=== PATIENT | male | born 1960 | race African-American/Black ===

== ENCOUNTER 2020-05-29 15:09 | Outpatient (REF) | payer OTHER, SELFPAY ==
[2020-05-29 16:47] LABS: Prostate Specific Antigen < 0.05 ng/mL (<0.05-4.0)
== END 2020-05-29 15:10 | disposition home or self-care (01) ==
LOC: HO.LAB 15:09
PROVIDERS: Visit Provider Radiology Radiation Oncology
DX: C61 Malignant neoplasm of prostate (principal)
CPT/HCPCS: 84153

== ENCOUNTER 2020-12-10 15:17 | Outpatient (REF) | payer OTHER, SELFPAY ==
[2020-12-10 16:31] LABS: Prostate Specific Antigen 0.05 ng/mL (<0.05-4.0)
== END 2020-12-10 15:18 | disposition home or self-care (01) ==
LOC: HO.LAB 15:17
PROVIDERS: PCP Internal Medicine; Visit Provider Radiology Radiation Oncology
DX: C61 Malignant neoplasm of prostate (principal); Z12.5 Encounter for screening for malignant neoplasm of prostate
CPT/HCPCS: 36415; 84153

== ENCOUNTER 2021-08-26 15:21 | Outpatient (REF) | payer OTHER, SELFPAY ==
[2021-08-26 17:27] LABS: Prostate Specific Antigen 0.08 ng/mL (<0.05-4.0)
== END 2021-08-26 15:22 | disposition home or self-care (01) ==
LOC: HO.LAB 15:21
PROVIDERS: PCP Internal Medicine; Visit Provider Radiology Radiation Oncology
DX: C61 Malignant neoplasm of prostate (principal)
CPT/HCPCS: 36415; 84153

== ENCOUNTER → 2021-11-20 13:50 | Outpatient (BNVA) | payer OTHER, SELFPAY | PROVIDERS: PCP Internal Medicine; Visit Provider Urology | DX: Z13.89 Encounter for screening for other disorder (principal) ==

== ENCOUNTER 2022-11-10 15:22 | Outpatient (REF) | payer OTHER, SELFPAY ==
[2022-11-10 17:52] LABS: Prostate Specific Antigen 0.11 ng/mL (<0.05-4.0)
== END 2022-11-10 15:23 | disposition home or self-care (01) ==
LOC: HO.LAB 15:22
PROVIDERS: PCP Internal Medicine; Visit Provider Urology
DX: Z12.5 Encounter for screening for malignant neoplasm of prostate (principal); N40.1 Benign prostatic hyperplasia with lower urinary tract symptoms; N13.8 Other obstructive and reflux uropathy
CPT/HCPCS: 36415; 84153

== ENCOUNTER → 2022-11-19 15:26 | Outpatient (BNVA) | payer OTHER, SELFPAY | PROVIDERS: PCP Internal Medicine; Visit Provider Urology | DX: Z13.89 Encounter for screening for other disorder (principal) ==

== ENCOUNTER 2023-01-30 07:58 | Outpatient (REF) | payer OTHER, SELFPAY ==
--- NOTE | ~2023-01-30 | XR_ITS ---
EXAMINATION: XR KNEE, RIGHT CLINICAL INFORMATION: Reason for Exam RIGHT KNEE/RIGHT HIP PAIN COMPARISON: None TECHNIQUE: 4 views of the knee FINDINGS: No acute fracture or dislocation. Post reflect a fracture deformities of the proximal tibial diaphysis and proximal fibular diaphysis with partially imaged intramedullary nail in the tibia. No perihardware lucency. Advanced degenerative changes of the knee with complete loss of medial compartment joint space and tricompartmental osteophytes.. No joint effusion. Soft tissues are unremarkable. XR/XR knee RT 4V IMPRESSION: * No acute osseous abnormality. * Moderate degenerative changes of the knee. Chronic fracture deformities of the proximal tibia and fibula status post ORIF.
--- NOTE | ~2023-01-30 | XR_ITS ---
EXAMINATION: XR HIP, RIGHT CLINICAL INFORMATION: Pain COMPARISON: None available. TECHNIQUE: Two views of the right hip. One view of the pelvis. FINDINGS: No acute fracture or dislocation. Mild degenerative changes of the hips with subchondral sclerosis and cystic change. Calcified phlebolith in the pelvis. Partially imaged penile prosthesis hardware. XR/XR hip RT w PEL1V IMPRESSION: Mild degenerative changes of the hips.
[2023-01-30 08:52] LABS: MANUAL DIFF FLAG NO
[2023-01-30 09:25] LABS: Basophils Percent Auto 1.1 % (0-2); Eosinophils Absolute Auto 0.2 X10*3/uL (0.0-0.4); Eosinophils Percent Auto 5.3 % (0-4); Hematocrit 42.4 % (42.0-52.0); Hemoglobin 13.7 g/dl (14.0-18.0); Lymphocytes Absolute Auto 1.1 X10*3/uL (1.2-4.9); Lymphocytes Percent Auto 37.1 % (20-40); Mean Corpuscular HGB Conc 32.3 g/dl (31.0-36.0); Mean Corpuscular Hemoglobin 27.3 pg (27.0-33.0); Mean Corpuscular Volume 84.6 fL (80.0-98.0); Mean Platelet Volume 9.5 fL (9.4-12.4); Monocytes Absolute Auto 0.4 X10*3/uL (0.1-1.2); Monocytes Percent Auto 12.7 % (2-11); Neutrophils Absolute Auto 1.2 x10*3/uL (2.0-8.3); Neutrophils Percent Auto 43.8 % (45-73); Platelet Count 206 X10*3/uL (160-400); Red Blood Count 5.01 X10*6/uL (4.60-5.80); White Blood Count 2.8 X10*3/uL (4.8-10.8)
[2023-01-30 09:26] LABS: Appearance Urine Clear; Color Urine Yellow; Glucose Urine UA Negative (Negative); Leukocyte Esterase Urine Negative (Negative); Nitrite Urine Negative (Negative); PH 6.5 (5.0-9.0); Urine Blood Negative (Negative); Urine Ketones Negative (Negative); Urine Protein Negative (Neg-Trace)
[2023-01-30 10:24] LABS: Alanine Aminotransferase 24 U/L (0-40); Alkaline Phosphatase 59 U/L (39-117); Anion Gap 12 (12-20); Aspartate Amino Transferase 23 U/L (5-37); Bilirubin Total 0.8 mg/dL (0.0-1.0); Blood Urea Nitrogen 19 mg/dL (9-16); Calcium 9.8 mg/dL (8.4-10.2); Carbon Dioxide 28 mmol/L (22-29); Chloride 101 mmol/L (96-108); Cholesterol 210 mg/dL; Estimated Glomerular Filt Rate 50; Glucose Fasting 97 mg/dL (60-99); HDL Cholesterol 55 mg/dL; Iron 81 mcg/dL (45-160); LDL Cholesterol Calculated 140 mg/dl; Percent Iron Saturation 32 % (15-50); Potassium 3.7 mmol/L (3.3-5.1); Sodium 137 mmol/L (135-145); Total Iron Binding Capacity 255 mcg/dL (228-428); Triglycerides 75 mg/dL; Unsaturated Iron Binding 174 ug/dL
== END 2023-01-30 07:59 | disposition home or self-care (01) ==
LOC: HO.LAB 07:58
PROVIDERS: PCP Internal Medicine; Visit Provider Internal Medicine
DX: M25.561 Pain in right knee (principal); M25.551 Pain in right hip; E78.00 Pure hypercholesterolemia, unspecified; D64.9 Anemia, unspecified; I12.9 Hypertensive chronic kidney disease with stage 1 through stage 4 chronic kidney disease, or unspecified chronic kidney disease; N18.9 Chronic kidney disease, unspecified
CPT/HCPCS: 36415; 73502; 73564; 80053; 80061; 81003; 83540; 85025

== ENCOUNTER 2023-05-04 14:30 | Outpatient (REF) | payer OTHER, SELFPAY ==
[2023-05-04 16:35] LABS: Prostate Specific Antigen 0.13 ng/mL (<0.05-4.0)
== END 2023-05-04 14:31 | disposition home or self-care (01) ==
LOC: HO.LAB 14:30
PROVIDERS: PCP Internal Medicine; Visit Provider Urology
DX: C61 Malignant neoplasm of prostate (principal); Z12.5 Encounter for screening for malignant neoplasm of prostate
CPT/HCPCS: 36415; 84153

== ENCOUNTER 2023-05-21 08:52 | Outpatient (AMB) | payer OTHER, SELFPAY ==
--- NOTE | 2023-05-21 09:03 | A.OFFVIS_ITS ---
Intake Intake Visit Reasons: 6m/PSA(set) Intake Note: Patient is present for PSA Urology Med: NONE Blood Thinner: none Research Environmental Engineer Required: No Accompanied by: Self / Same As Patient Allergies No Known Allergies [No Known Allergies*] Allergy (Verified 05/21/23 09:04) HPI HPI Comments History of Present Illness Details Kurtis is a pleasant male. He is a patient of Dr. Mario. He is seen for the following urologic conditions - prostate cancer Slight rise in PSA If continues 0.2 would consider PET-CT Part of [employer] exposure Prostate Cancer - 2014 [place] 3+4 pT2 initial therapy RALP, EXBRT for rising PSA 03/10 PSA bouncing PSA 09/11 0.05, 09/14 0.08, 10/16 0.11, 05/16 0.13 Good urinary control, Associated erectile dysfunction Initial therapy RALP [facility] 2014 Secondary therapy EXBRT [facility] 03/10 - PSA 0.17 Continue with 6m PSA - consider PET-CT if PSA crosses 0.2 Review of Systems Const Denies chills and Denies fever(s) Card Reports no additional complaints and Denies syncope Resp Denies cough GI Denies abdominal pain and Denies heartburn Reports as per HPI and Denies change in libido Neuro Denies syncope Psych Denies change in libido Endo Denies change in libido Physical Exam Const General: cooperative, healthy appearing, comfortable and no acute distress Orientation/consciousness: patient oriented x3 HEENT Face and sinus: Yes normal facial exam Mouth: moist mucous membranes Neck Neck: Yes normal visual inspection, Yes full ROM and Yes trachea midline Chest Chest palpation & inspection: normal inspection of the chest Resp Effort & Inspection: normal respiratory effort, able to speak in complete sentences and no respiratory distress GI Inspection: Yes normal to inspection Back/Spine/Pelvis Cervical Spine: normal cervical lordosis Thoracic/Lumbar Spine: thoracic and lumbar spine normal to inspection Skin General skin exam: no rashes or lesions noted Neuro General: patient oriented x3, gait normal, tone normal and moves all extremities Extrem General: Yes normal to inspection and Yes capillary refill normal Assessment & Plan Assessment & Plan (1) Prostate cancer: Code(s): C61 - Malignant neoplasm of prostate Plan Six month follow-up PSA Orders: Orders Prostate Specific Antigen 6 Months C61 - Malignant neoplasm of prostate Patient Instructions: Imaging studies, laboratory and physical exam results were discussed and reviewed in detail. No major barriers to patient understanding were identified. An opportunity to ask questions regarding the treatment plan was provided. All questions were answered. The patient expressed understanding and agreement with the above treatment plan. The patient is aware they should contact our office by phone for worsening of their current condition or the appearance of new urologic symptoms. Compliance is encouraged with any medications and followup testing that is ordered. It is a privilege to participate in the urologic care of your patient. If you have any questions or concerns regarding treatment for the above conditions, or other urologic issues, please do not hesitate to contact me. The office telephone contact is [phone]. This note is constructed using voice recognition software. While every effort has been made to ensure accuracy camouflage assembler errors may have been included. Yours sincerely, Dr Nathan Greenwood MD, [facility] - Urology Providers of Expert, Compassionate Care for the Genitourinary System Coding Level of Care Code Est Pt Level 3 (47310) Diagnoses Prostate cancer C61
== END 2023-05-21 09:34 | disposition home or self-care (01) ==
PROVIDERS: PCP Internal Medicine; Visit Provider Urology
DX: C61 Malignant neoplasm of prostate (principal)
CPT/HCPCS: 99213

== ENCOUNTER → 2023-05-21 08:52 | Outpatient (BNVA) | payer OTHER, SELFPAY | PROVIDERS: Visit Provider Urology ==

== ENCOUNTER 2023-07-09 09:44 | Outpatient (AMB) | payer OTHER, SELFPAY ==
--- NOTE | 2023-07-09 10:26 | A.OFFVIS_ITS ---
Intake Vital Signs 07/09/23 10:31 Height 5 ft 7 in Weight 220 lb BMI 34.5 Intake Visit Reasons: FORESTRY AIDE- RT Knee pain Intake Note: Kurtis 63 yr old male presents today for a new patient visit for his right knee. States he has knee pain that has worsen in the last 2-3 year. 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 He also reports intermittent discomfort along the lateral aspect of his right hip. He denies any fevers or chills. He has tried Tylenol and anti-inflammatory medicines which gave him minimal relief. 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 Physical Exam Vital Signs: BMI result Body Mass Index 34.5 Const Other: Well-nourished well-developed very friendly male awake alert and oriented x3 in no acute distress Extrem Other: Bilateral lower extremity examination shows good capillary refill, no skin lesions noted, normal sensation light touch Right hip examination shows full range of motion when compared to his left hip, tenderness along his iliotibial band, no overlying skin lesions Right knee examination shows palpable crepitus with range of motion, pain with range of motion, range of motion from -3 degrees to 115 degrees, no instability Results Reviewed Results Reviewed: X-rays of the patient's right knee show moderate to severe joint space narrowing, subchondral sclerosis, there is an intramedullary asher within the tibia with no signs of loosening Assessment & Plan Assessment & Plan (1) Iliotibial band syndrome of right side: Code(s): M76.31 - Iliotibial band syndrome, right leg (2) Arthritis of right knee: Code(s): M17.11 - Unilateral primary osteoarthritis, right knee Plan: Mr. Bragg presents with right hip pain due to iliotibial band syndrome as well as right knee pain and mechanical symptoms due to degenerative joint disease. I had a lengthy discussion with the patient regarding the treatment options. He wishes hold off on surgery for as long possible. I agree with this plan. Because of the patient's symptoms of instability have him fitted with a knee brace. I feel that this is a medical necessity to help prevent future falls. I also put in a referral to physical therapy. I will see him back in 2- 3 months time for repeat clinical examination. Feel free to call me at any time should questions regarding his orthopedic management arise. Thank you very much for asking me to see this very friendly gentleman. I spent 22 minutes in reviewing the patient's records and imaging studies, seeing the patient and documenting in the medical record. Orders: Orders PT Evaluation and Treatment Today M17.11 - Unilateral primary osteoarthritis, right knee, M76.31 - Iliotibial band syndrome, right leg Coding Level of Care Code New Pt Level 2 (36506) Diagnoses Iliotibial band syndrome of right side M76.31 Arthritis of right knee M17.11
[2023-07-09 10:31] VITALS: BMI 34.5
== END 2023-07-09 10:51 | disposition home or self-care (01) ==
PROVIDERS: PCP Internal Medicine; Visit Provider Orthopaedic Surgery
DX: M76.31 Iliotibial band syndrome, right leg (principal); M17.11 Unilateral primary osteoarthritis, right knee
CPT/HCPCS: 99202

== ENCOUNTER → 2023-07-09 09:44 | Outpatient (BNVA) | payer OTHER, SELFPAY | PROVIDERS: PCP Internal Medicine; Visit Provider Orthopaedic Surgery ==

== ENCOUNTER 2023-09-17 09:55 | Outpatient (RCR) | payer OTHER, SELFPAY ==
--- NOTE | 2023-10-06 11:20 | MHC.PT.DC ---
[facility] [place] Office [place] Office [place] Office [address] Mike Sanchez [address] [phone] F: [phone] F: [phone] F: [phone] F: [phone] Physical Therapy Discharge Report Diagnosis: RIGHT KNEE PAIN (KP) Date of Surgery: Date of Evaluation: 09/17/23 Date of Discharge: 10/21/23 Treatments to Date: 1 Cancellations to Date: 0 No Shows to Date: 0 Discharge Status: Patient Elected to Stop Discharge Summary: Pt attended PT Eval only then phoned to self DC, no reason given. Electronically signed by: Alpa Pereira PT DPT Please sign and return to therapist. Thank you for your referral.
== END 2023-10-06 11:20 | disposition home or self-care (01) ==
LOC: HO.PT 09:55
PROVIDERS: PCP Internal Medicine; Visit Provider Orthopaedic Surgery
DX: M17.11 Unilateral primary osteoarthritis, right knee (principal); M76.31 Iliotibial band syndrome, right leg
CPT/HCPCS: 97110; 97161

== ENCOUNTER 2023-10-29 12:34 | Outpatient (AMB) | payer OTHER, SELFPAY ==
[2023-10-29 12:42] VITALS: BMI 34.5
--- NOTE | 2023-10-29 12:42 | MHC.OFFVIS ---
Intake Vital Signs 10/29/23 12:42 Height 5 ft 7 in Weight 220 lb BMI 34.5 Intake Visit Reasons: OV-Rt knee pain Intake Note: Kurtis is a 63 year old male who presents for a follow up of Right knee pain. Patient reports he went to physical therapy and it did help and stairs are easier. He was fitted for a brace at his last appointment and is not wearing it. The patient describes his knee pain as achy in nature. He wishes to hold off on an injection for now. States that he plans to begin light jogging in a field near his home as whether this spring improves. 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 Bragg presents for follow-up of his right knee pain due to degenerative joint disease. I had a lengthy discussion with the patient regarding the treatment options. At this point is getting good relief from his current stretching and exercise program. We will hold off on an injection. He will follow up with me on an as-needed basis should his symptoms worsen in any way. Feel free to call me at any time should questions regarding his orthopedic management arise. I spent 22 minutes in reviewing the patient's records and imaging studies, seeing the patient and documenting in the medical record. Coding Level of Care Code Est Pt Level 2 (26221) Diagnoses Arthritis of right knee M17.11
== END 2023-10-29 12:58 | disposition home or self-care (01) ==
PROVIDERS: PCP Internal Medicine; Visit Provider Orthopaedic Surgery
DX: M17.11 Unilateral primary osteoarthritis, right knee (principal)
CPT/HCPCS: 99212

== ENCOUNTER → 2023-10-29 12:34 | Outpatient (BNVA) | payer OTHER, SELFPAY | PROVIDERS: PCP Internal Medicine; Visit Provider Orthopaedic Surgery ==

== ENCOUNTER 2023-12-04 08:32 | Outpatient (REF) | payer OTHER, SELFPAY ==
[2023-12-04 10:06] LABS: Prostate Specific Antigen 0.15 ng/mL (<0.05-4.0)
== END 2023-12-04 08:33 | disposition home or self-care (01) ==
LOC: HO.LAB 08:32
PROVIDERS: PCP Internal Medicine; Visit Provider Urology
DX: Z12.5 Encounter for screening for malignant neoplasm of prostate (principal); C61 Malignant neoplasm of prostate
CPT/HCPCS: 36415; 84153

== ENCOUNTER 2023-12-22 15:06 | Outpatient (AMB) | payer OTHER, SELFPAY ==
--- NOTE | 2023-12-22 15:08 | MHC.OFFVIS ---
Intake Visit Reasons: PSA- follow up(set) Intake Note: Patient is Present for Telephone Follow Up Urology Med:None Antibiotic Allergy: None Blood Thinner: None Allergies No Known Allergies [No Known Allergies*] Allergy (Verified 12/22/23 15:08) HPI Comments Details: Kurtis is a pleasant male. He is a patient of Dr. Mario. He is seen for the following urologic conditions - prostate cancer Telemedicine Evaluation 15 min Consultation Doximity Freddie Video attempted Very slow PSA rise. Doubling time approximately 30 months May try low-dose finasteride Thursday, Thursday, Thursday if PSMA Scan negative Continue to follow Part of [place] exposure Prostate Cancer - 2014 [place] 3+4 pT2 initial therapy RALP, EXBRT for rising PSA 03/10 PSA bouncing PSA 09/11 0.05, 09/14 0.08, 10/16 0.11, 05/16 0.13, 12/15 0.15 Good urinary control, Associated erectile dysfunction Initial therapy RALP [facility] 2014 Secondary therapy EXBRT [facility] 03/10 - PSA 0.17 Continue with 6m PSA - consider PET-CT if PSA crosses 0.2 PFSH Social History Current occupational status: employed 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 Review of Systems Const All systems reviewed & are unremarkable except as noted in HPI and below Reports no additional complaints Resp Reports no additional complaints GI Reports no additional complaints Reports as per HPI Musc Reports no additional complaints Physical Exam Telemedicine evaluation Appropriate responses Regular breathing rate and rhythm HEENT Head: Yes normal to inspection Ears: hearing grossly normal bilaterally Eyes General: appearance normal, both eyes and all related structures Neck Neck: Yes normal visual inspection Chest Chest palpation & inspection: normal inspection of the chest Resp Effort & Inspection: normal respiratory effort and able to speak in complete sentences Telehealth Telehealth Telehealth Platform: Social IQ (Social Influence Quotient) Location of provider rendering services: practice address Location of patient: address on file Patient Identification confirmed using: Name, : Yes Telehealth method: video Patient verbally consented to treatment: Yes Patient verbally consented to billing insurance company: Yes Patient informed of any privacy concerns related to visit: Yes Minutes spent on Phone/Video with Pt.: 15 Assessment & Plan Assessment & Plan (1) Prostate cancer: Code(s): C61 - Malignant neoplasm of prostate Category: Medical (2) Rising PSA following treatment for malignant neoplasm of prostate: Code(s): R97.21 - Rising PSA following treatment for malignant neoplasm of prostate Category: Medical Plan Six-month follow-up PSA Orders: Orders Prostate Specific Antigen 6 Months C61 - Malignant neoplasm of prostate Patient Instructions: Imaging studies, laboratory and physical exam results were discussed and reviewed in detail. No major barriers to patient understanding were identified. An opportunity to ask questions regarding the treatment plan was provided. All questions were answered. The patient expressed understanding and agreement with the above treatment plan. The patient is aware they should contact our office by phone for worsening of their current condition or the appearance of new urologic symptoms. Compliance is encouraged with any medications and followup testing that is ordered. It is a privilege to participate in the urologic care of your patient. If you have any questions or concerns regarding treatment for the above conditions, or other urologic issues, please do not hesitate to contact me. The office telephone contact is [phone]. This note is constructed using voice recognition software. While every effort has been made to ensure accuracy battery assembler plastic errors may have been included. Yours sincerely, Dr Nathan Greenwood MD, [facility] - Urology Providers of Expert, Compassionate Care for the Genitourinary System Coding Level of Care Code Tele Est Pt Level 3 (80991) Complex EM visit Add On G2211 Diagnoses Prostate cancer C61 Rising PSA following treatment for malignant neoplasm of prostate R97.21
== END 2023-12-22 15:25 | disposition home or self-care (01) ==
LOC: HO.HUSH 15:06
PROVIDERS: PCP Internal Medicine; Visit Provider Urology
DX: C61 Malignant neoplasm of prostate (principal); R97.21 Rising PSA following treatment for malignant neoplasm of prostate
CPT/HCPCS: 99213; G2211

== ENCOUNTER → 2023-12-22 15:06 | Outpatient (BNVA) | payer OTHER, SELFPAY | PROVIDERS: PCP Internal Medicine; Visit Provider Urology ==

== ENCOUNTER 2024-01-29 10:27 | Outpatient (REF) | payer MEDICARE, SELFPAY ==
[2024-01-29 13:26] LABS: Appearance Urine Clear; Color Urine Yellow; Glucose Urine UA Negative (Negative); Leukocyte Esterase Urine Negative (Negative); Nitrite Urine Negative (Negative); PH 5.5 (5.0-9.0); Urine Blood Negative (Negative); Urine Ketones Negative (Negative); Urine Protein Negative (Neg-Trace)
[2024-01-29 13:31] LABS: Basophils Percent Auto 1.7 % (0-2); Eosinophils Absolute Auto 0.1 X10*3/uL (0.0-0.4); Eosinophils Percent Auto 5.1 % (0-4); Hematocrit 41.2 % (42.0-52.0); Hemoglobin 13.5 g/dl (14.0-18.0); Lymphocytes Absolute Auto 0.8 X10*3/uL (1.2-4.9); Lymphocytes Percent Auto 34.7 % (20-40); MANUAL DIFF FLAG SCAN; Mean Corpuscular HGB Conc 32.8 g/dl (31.0-36.0); Mean Corpuscular Hemoglobin 27.7 pg (27.0-33.0); Mean Corpuscular Volume 84.4 fL (80.0-98.0); Mean Platelet Volume 9.2 fL (9.4-12.4); Monocytes Absolute Auto 0.3 X10*3/uL (0.1-1.2); Monocytes Percent Auto 12.7 % (2-11); Neutrophils Absolute Auto 1.1 x10*3/uL (2.0-8.3); Neutrophils Percent Auto 45.8 % (45-73); Platelet Count 219 X10*3/uL (160-400); Red Blood Count 4.88 X10*6/uL (4.60-5.80); SCAN SMEAR FLAG 1
[2024-01-29 13:32] LABS: White Blood Count 2.4 X10*3/uL (4.8-10.8)
[2024-01-29 13:48] LABS: Alanine Aminotransferase 19 U/L (0-40); Alkaline Phosphatase 59 U/L (39-117); Anion Gap 13 (12-20); Aspartate Amino Transferase 19 U/L (5-37); Bilirubin Total 0.5 mg/dL (0.0-1.0); Blood Urea Nitrogen 16 mg/dL (9-16); Calcium 9.2 mg/dL (8.4-10.2); Carbon Dioxide 26 mmol/L (22-29); Chloride 102 mmol/L (96-108); Cholesterol 203 mg/dL (<200); Estimated Glomerular Filt Rate > 60; Glucose Fasting 100 mg/dL (60-99); HDL Cholesterol 55 mg/dL (>40); LDL Cholesterol Calculated 136 mg/dL (<100); Potassium 3.5 mmol/L (3.3-5.1); Sodium 137 mmol/L (135-145); Total Protein 7.3 g/dL (6.5-8.0); Triglycerides 61 mg/dL (<150)
[2024-01-29 13:59] LABS: SLIDE REVIEW VERIFIED
== END 2024-01-29 10:28 | disposition home or self-care (01) ==
LOC: HO.10HDL 10:27
PROVIDERS: Visit Provider Internal Medicine
DX: I12.9 Hypertensive chronic kidney disease with stage 1 through stage 4 chronic kidney disease, or unspecified chronic kidney disease (principal); N18.9 Chronic kidney disease, unspecified; E78.00 Pure hypercholesterolemia, unspecified
CPT/HCPCS: 36415; 80053; 80061; 81003; 85025

== ENCOUNTER 2024-06-16 08:28 | Outpatient (REF) | payer MEDICARE, SELFPAY | END 2024-06-16 08:29 | disposition home or self-care (01) | LOC: HO.10HDL 08:28 | PROVIDERS: Visit Provider Urology | DX: C61 Malignant neoplasm of prostate (principal); Z12.5 Encounter for screening for malignant neoplasm of prostate | CPT/HCPCS: 36415; 84153 ==

== ENCOUNTER 2024-06-24 10:36 | Outpatient (AMB) | payer MEDICARE, BC, SELFPAY ==
--- NOTE | 2024-06-24 10:46 | A.OFFVIS_ITS ---
Intake Visit Reasons: 6m/PSA(set) Intake Note: Patient is Present for Follow Up PSA Urology Medication: None Antibiotic Allergies: None Blood Thinners: None Recent PSA: 06/16/24 PSA: 0.20 Jig Operator Required: No Accompanied by: Self / Same As Patient Allergies No Known Allergies [No Known Allergies*] Allergy (Verified 06/24/24 10:50) HPI Comments Details: Kurtis is a pleasant male. He is a patient of Dr. Mario. He is seen for the following urologic conditions - prostate cancer Six-month follow-up Very slow PSA rise. Doubling time approximately 30 months May try cycling low-dose finasteride - alternate months Part of [employer] exposure Prostate Cancer - 2014 [place] 3+4 pT2 initial therapy RALP, EXBRT for rising PSA 03/10 PSA bouncing - with slow rise PSA 09/11 0.05, 09/14 0.08, 10/16 0.11, 05/16 0.13, 12/15 0.15, 06/16 0.2 Good urinary control, Associated erectile dysfunction Initial therapy RALP [facility] 2014 Secondary therapy EXBRT [facility] 03/10 - PSA 0.17 Continue with 6m PSA - consider PET-CT if PSA crosses 0.2 PFSH Social History Current occupational status: employed 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 Review of Systems Const Denies chills and Denies fever(s) Card Reports no additional complaints and Denies syncope Resp Denies cough GI Denies abdominal pain and Denies heartburn Reports as per HPI and Denies change in libido Neuro Denies syncope Psych Denies change in libido Endo Denies change in libido Physical Exam Const General: cooperative, healthy appearing, comfortable and no acute distress Orientation/consciousness: patient oriented x3 HEENT Face and sinus: Yes normal facial exam Mouth: moist mucous membranes Neck Neck: Yes normal visual inspection, Yes full ROM and Yes trachea midline Chest Chest palpation & inspection: normal inspection of the chest Resp Effort & Inspection: normal respiratory effort, able to speak in complete sentences and no respiratory distress GI Inspection: Yes normal to inspection Back/Spine/Pelvis Cervical Spine: normal cervical lordosis Thoracic/Lumbar Spine: thoracic and lumbar spine normal to inspection Skin General skin exam: no rashes or lesions noted Neuro General: patient oriented x3, gait normal, tone normal and moves all extremities Extrem General: Yes normal to inspection and Yes capillary refill normal Assessment & Plan Assessment & Plan (1) Rising PSA following treatment for malignant neoplasm of prostate: Code(s): R97.21 - Rising PSA following treatment for malignant neoplasm of prostate Category: Medical (2) Prostate cancer: Code(s): C61 - Malignant neoplasm of prostate Category: Medical Plan Initiate alternate month finasteride Six-month follow-up PSA Orders: Orders Prostate Specific Antigen 6 Months R97.21 - Rising PSA following treatment for malignant neoplasm of prostate Medications: New finasteride Take medication daily for alternate months - June on, July off etc 5 mg PO DAILY 90 days 90 tabs 1RF R97.21 - Rising PSA following treatment for malignant neoplasm of prostate Patient Instructions: Imaging studies, laboratory and physical exam results were discussed and reviewed in detail. No major barriers to patient understanding were identified. An opportunity to ask questions regarding the treatment plan was provided. All questions were answered. The patient expressed understanding and agreement with the above treatment plan. The patient is aware they should contact our office by phone for worsening of their current condition or the appearance of new urologic symptoms. Compliance is encouraged with any medications and followup testing that is ordered. It is a privilege to participate in the urologic care of your patient. If you have any questions or concerns regarding treatment for the above conditions, or other urologic issues, please do not hesitate to contact me. The office telephone contact is [phone]. This note is constructed using voice recognition software. While every effort has been made to ensure accuracy gang bore operator errors may have been included. Yours sincerely, Dr Nathan Greenwood MD, [facility] - Urology Providers of Expert, Compassionate Care for the Genitourinary System Coding Level of Care Code Est Pt Level 4 (97296) Diagnoses Rising PSA following treatment for malignant neoplasm of prostate R97.21 Prostate cancer C61
== END 2024-06-24 11:12 | disposition home or self-care (01) ==
LOC: HO.HUSH 10:37
PROVIDERS: PCP Internal Medicine; Visit Provider Urology
DX: R97.21 Rising PSA following treatment for malignant neoplasm of prostate (principal); C61 Malignant neoplasm of prostate
CPT/HCPCS: 99214

== ENCOUNTER → 2024-06-24 10:36 | Outpatient (BNVA) | payer MEDICARE, SELFPAY | PROVIDERS: PCP Internal Medicine; Visit Provider Urology | DX: R97.21 Rising PSA following treatment for malignant neoplasm of prostate (principal); C61 Malignant neoplasm of prostate | CPT/HCPCS: 99212 ==

== ENCOUNTER 2024-12-26 09:17 | Outpatient (REF) | payer BC, MEDICARE, SELFPAY ==
[2024-12-26 11:21] LABS: Prostate Specific Antigen 0.24 ng/mL (<0.05-4.0)
== END 2024-12-26 09:18 | disposition home or self-care (01) ==
LOC: HO.10HDL 09:17
PROVIDERS: Visit Provider Urology
DX: Z12.5 Encounter for screening for malignant neoplasm of prostate (principal); R97.21 Rising PSA following treatment for malignant neoplasm of prostate
CPT/HCPCS: 36415; 84153

== ENCOUNTER 2024-12-30 13:15 | Outpatient (AMB) | payer BC, SELFPAY ==
--- NOTE | 2024-12-30 13:15 | A.OFFVIS_ITS ---
Intake Visit Reasons: 6m/ PSA Intake Note: Patient is present for 6M/PSA Urology Medication:FINASTERIDE Antibiotic Allergy:NONE Blood Thinner:NONE Electrostatic Paint Operator Required: No Allergies No Known Allergies [No Known Allergies*] Allergy (Verified 12/30/24 13:16) HPI Comments Details: Kurtis is a pleasant male. He is a patient of Dr. Mario. He is seen for the following urologic conditions - prostate cancer Telemedicine Evaluation 15 min Consultation Doximity Freddie Video Six-month follow-up Very slow PSA rise. Doubling time approximately 30 months May try cycling low-dose finasteride - alternate months Part of [employer] [place] exposure Prostate Cancer - 2014 [place] 3+4 pT2 initial therapy RALP, EXBRT for rising PSA 03/10 PSA bouncing - with slow rise PSA 09/11 0.05, 09/14 0.08, 10/16 0.11, 05/16 0.13, 12/15 0.15, 06/16 0.2, 01/15 0.2 Good urinary control, Associated erectile dysfunction Initial therapy RALP [facility] 2014 Secondary therapy EXBRT [facility] 03/10 - PSA 0.17 Continue with 6m PSA - consider PET-CT if PSA crosses 0.2 PFSH Social History Current occupational status: employed 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 Telehealth Telehealth Telehealth Platform: Magnetic Location of provider rendering services: practice address Location of patient: address on file Patient Identification confirmed using: Name, : Yes Telehealth method: video Patient verbally consented to treatment: Yes Patient verbally consented to billing insurance company: Yes Patient informed of any privacy concerns related to visit: Yes Minutes spent on Phone/Video with Pt.: 15 Assessment & Plan Assessment & Plan (1) Prostate cancer: Code(s): C61 - Malignant neoplasm of prostate Category: Medical Plan PSA six-month Orders: Orders Prostate Specific Antigen 6 Months C61 - Malignant neoplasm of prostate Patient Instructions: This note is constructed using voice recognition software. While every effort has been made to ensure accuracy product technology scientist errors may have been included. Imaging studies, laboratory and physical exam results were discussed and reviewed in detail. No major barriers to patient understanding were identified. An opportunity to ask questions regarding the treatment plan was provided. All questions were answered. The patient expressed understanding and agreement with the above treatment plan. The patient is aware they should contact our office by phone for worsening of their current condition or the appearance of new urologic symptoms. Compliance is encouraged with any medications and followup testing that is ordered. It is a privilege to participate in the urologic care of your patient. If you have any questions or concerns regarding treatment for the above conditions, or other urologic issues, please do not hesitate to contact me. The office telephone contact is [phone]. Sincerely, Dr Nathan Greenwood MD, [facility] - Urology Compassionate Specialist Care for the Genitourinary System Coding Level of Care Code Tele Est Pt Level 3 (16832) Complex EM visit Add On G2211 Diagnoses Prostate cancer C61
== END 2024-12-30 15:25 | disposition home or self-care (01) ==
LOC: HO.HUSH 13:15
PROVIDERS: PCP Internal Medicine; Visit Provider Urology
DX: C61 Malignant neoplasm of prostate (principal)
CPT/HCPCS: 99213

== ENCOUNTER → 2024-12-30 13:15 | Outpatient (BNVA) | payer BC, MEDICARE, SELFPAY | PROVIDERS: PCP Internal Medicine; Visit Provider Urology ==

== ENCOUNTER 2025-02-01 13:56 | Outpatient (AMB) | payer MEDICARE, SELFPAY ==
--- NOTE | 2025-02-01 13:17 | A.OFFPC_ITS ---
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 Required: No Accompanied by: Self / Same As Patient Allergies No Known Allergies [No Known Allergies*] Allergy (Verified 02/01/25 14:22) Medication List - Last Reconciled 02/01/25 by Shaheen Mchugh MD amlodipine 5 mg PO DAILY finasteride 5 mg PO DAILY 90 days hydrochlorothiazide 25 mg PO DAILY lisinopril 20 mg PO DAILY Tobacco use date assessed: 02/01/25 Fall risk assessment: No Falls in past year Last assessed Fall Risk: 02/01/25 Dental Screening Dental Screen Date: 02/01/25 Did you have a dental visit in the last 12 months?: Yes Did you have a dental problem in the last 6 months where you did not have access to dental care?: No [facility] Medical History (Updated 02/01/25 @ 14:25 by Shaheen Mchugh MD) Obesity (BMI 35.0-39.9 without comorbidity) Prostate cancer Essential hypertension Surgical History History of colonoscopy (~03/11/13) Family History Mother No problems noted. Father No problems noted. 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 1. Little interest or pleasure in doing things: not at all 2. Feeling down, depressed, or hopeless: not at all 3. Trouble falling or staying asleep, or sleeping too much: not at all 4. Feeling tired or having little energy: not at all 5. Poor appetite or overeating: not at all 6. Feeling bad about yourself - or that you are a failure or have let yourself or your family down: not at all 7. Trouble concentrating on things, such as reading the newspaper or watching television: not at all 8. Moving or speaking so slowly that other people could have noticed. Or the opposite - being so fidgety or restless that you have been moving around a lot more than usual: not at all 9. Thoughts that you would be better off or of hurting yourself in some way: not at all Total score: 0 Depression Screening Interpretation: Negative Depression Screening Done: Yes Source: Developed by Drs. Neal Horner, Fatoumata Madrigal, Manolo Crocker and colleagues, with an educational sharri from [employer]. Thrive Questionnaire Date Thrive assessed: 02/01/25 I am a: Patient Within the past 12 months, did the food you bought not last and you didn't have the money to get more?: Never true Within the past 12 months, did you worry whether your food would run out before you got money to buy more?: Never true Do you have trouble paying for medicines?: No Do you have trouble getting transportation to medical appointments?: No Do you have trouble paying your heating and electricity bill?: No Do you have trouble taking care of your child, family member or friend?: No Do you have trouble with day-to-day activities such as bathing, preparing meals, shopping, managing finances, etc.?: No Are you currently unemployed and looking for a job?: No Are you interested in more education?: No Currently or been in a relationship where the following occur: No concerns reported THRIVE Score: 0 AUDIT C Alcohol Use Questionnaire (AUDIT-C) 1. How often do you have a drink containing alcohol?: Monthly or less 2. How many drinks containing alcohol do you have on a typical day when you are drinking?: 1 or 2 3. How often do you have six or more drinks on one occasion?: Less than monthly Total Score: 2 PASTOR-7 AMB Questionnaire PASTOR-7 Date PASTOR - 7 assessed: 02/01/25 Feeling nervous, anxious, or on edge: 0 = Not at all Not being able to stop or control worryin = Not at all Worrying too much about different things: 0 = Not at all Trouble relaxin = Not at all Being so restless that it is hard to sit still: 0 = Not at all Becoming easily annoyed or irritable: 0 = Not at all Feeling afraid as if something awful might happen: 0 = Not at all Total PASTOR-7 score (0-4 normal; 5-9 mild; 10-14 moderate; 15-21 severe): 0 Source: Developed by Drs. Neal Horner, Fatoumata Madrigal, Manolo Crocker and colleagues, with an educational sharri from [employer]. Physical exam (Primary Care) Vital Signs: Last Vital Signs Temp 97.5 F 02/01/25 14:06 Pulse 89 02/01/25 14:06 BP 130/80 02/01/25 14:06 Pulse Ox 97 02/01/25 14:06 Oxygen Delivery Method Room Air 02/01/25 14:06 Care Plan Goal for BP management: BP is in range. BMI result Body Mass Index 38.1 BMI Assessment/Plan discussion: High (One pound per week weight loss suggested) BMI High, discussed plan: lifestyle, weight reduction and dietary Tobacco/Smoking Status: Tobacco use Status Tobacco use date assessed 02/01/25 02/01/25 13:19 Patient Tobacco Use Status Never used Tobacco 02/01/25 13:19 e-Cigarette/Vaping Use Never Used 02/01/25 13:19 PHQ-9: PHQ-9 Score PHQ-9: Total score 0 02/01/25 14:10 Depression Screening Interpretation: Negative Thrive Assessment: Date of Thrive Assessment Date Thrive assessed 02/01/25 02/01/25 13:19 Currently or been in a relationship where the following occur: No concerns reported Advance Care Planning discussion: Exists, not on file Date of discussion: 02/01/25 Who was present: Patient Forms completed: Health Care Proxy and MOLST Time spent: 1-15 minutes, on File Actual minutes spent: 5 Coding Level of Care Code Est Pt Level 4 (47844) Complex EM visit Add On G2211 Diagnoses Essential hypertension I10 Prostate cancer C61 Obesity (BMI 35.0-39.9 without comorbidity) E66.9 Additional Codes Vital Signs *Quality* - Advance Care Planning discussion: Exists, not on file ([id number]) Vital Signs *Quality* - Time spent: 1-15 minutes, on File ([id number]) Assessment & Plan Assessment & Plan (1) Essential hypertension: Code(s): I10 - Essential (primary) hypertension Category: Medical Plan: BP in range. Continue current medications. (2) Prostate cancer: Code(s): C61 - Malignant neoplasm of prostate Category: Medical Plan: PSA being checked by the urologist.; (3) Obesity (BMI 35.0-39.9 without comorbidity): Code(s): E66.9 - Obesity, unspecified Category: Medical Plan: Counselling on diet and exercise done. Plan History of Present Illness - The patient is a 64-year-old male presenting for a follow up visit. - The patient has a history of prostate-specific antigen (PSA) testing done about four months ago without further prostate-related procedure reports or updates known. - Long-standing engagement with previous healthcare provider, leading to consistent screening and management practices over the last 30 years. 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 - No new health complaints and reported satisfaction with current medication adherence, addressing prescription needs with a pharmacy as needed. - Requires routine blood work with emphasis on fasting beforehand for cholesterol and other planned assessments. 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 - Engages in regular physical activity, including walking, golfing 9 holes using a cart, and weightlifting. - Retired lifestyle with satisfaction in finding constructive activities and maintaining social interactions. - No active family planning discussion or pertinent family status changes were mentioned. Review of Systems - General: Denies any health concerns. - Vision: Reports good vision, needs glasses for reading, denies halos and night vision issues. - Musculoskeletal: Denies any pain. - Urogenital: Recent PSA test completed, no other symptoms reported. Physical Exam General: Cooperative and healthy appearing Nutritional Appearance: Well nourished Orientation/consciousness: Patient oriented x3 Limitations: No limitations Head: Normal to inspection General: Appearance normal, both eyes and all related structures Neck: Normal visual inspection Chest: Normal palpation of entire chest wall Respiratory: N ormal respiratory effort Neurology: Patient oriented x3, vision good, no halos, can see during the night Results - Labs: PSA testing done approximately four months ago. - Tests and Diagnostics: No cholesterol testing discussed recently, needs to be completed. Plan 1. History Of Prostate Screening - Monitoring will continue based on the prior PSA test results. 2. Need For Cholesterol Evaluation - A fasting blood work panel to evaluate cholesterol levels has been ordered. 3. Lifestyle Modifications Post-Snf - Patient to maintain regular physical activity for cardiovascular and mental health benefits. Discussion Notes During today's visit, I discussed with the patient the importance of continuing regular prostate health monitoring given his recent PSA test. We agreed on pursuing necessary blood work, specifically to evaluate cholesterol levels, as previous testing had not complemented his prophylactic care. I also highlighted the benefits of his active lifestyle post-longterm in maintaining cardiovascular health and functional status, advising continued engagement in activities that he finds satisfying. The patient expressed understanding of the outlined plan, confirming consent for proposed evaluations and adherence to recommendations for physical activity. We will follow up based on the results of the upcoming blood work within the established timeline. Patient Instructions - Continue taking all prescribed medications as directed. - Complete fasting blood work before the next visit to test cholesterol levels. - Maintain regular exercise routine including walking and playing golf. - Use glasses for reading as needed. - Report any new symptoms or concerns at the next follow-up. - Consider reviewing advanced care directives and completing a living will form. Orders: Orders Lipid Panel Today I10 - Essential (primary) hypertension Liver Panel Today I10 - Essential (primary) hypertension Basic Metabolic Panel Today I10 - Essential (primary) hypertension Complete Blood Count no Diff Today I10 - Essential (primary) hypertension Thyroid Stimulating Hormone Today I10 - Essential (primary) hypertension UA and rflx microscopic Today I10 - Essential (primary) hypertension
[2025-02-01 14:06] VITALS: BP 130/80; PULSE 89; TEMP 36.4; O2SAT 97; BMI 38.1
== END 2025-02-01 14:19 | disposition home or self-care (01) ==
LOC: HO.HMCHD 13:57
PROVIDERS: PCP Internal Medicine; Visit Provider Internal Medicine
DX: I10 Essential (primary) hypertension (principal); C61 Malignant neoplasm of prostate; E66.9 Obesity, unspecified; Z68.38 Body mass index [BMI] 38.0-38.9, adult; Z00.00 Encounter for general adult medical examination without abnormal findings

== ENCOUNTER → 2025-02-01 13:56 | Outpatient (BNVA) | payer MEDICARE, SELFPAY | PROVIDERS: PCP Internal Medicine; Visit Provider Internal Medicine | DX: I10 Essential (primary) hypertension (principal); C61 Malignant neoplasm of prostate; E66.9 Obesity, unspecified; Z68.38 Body mass index [BMI] 38.0-38.9, adult | CPT/HCPCS: 96127; 99212 ==

== ENCOUNTER 2025-06-12 09:14 | Outpatient (REF) | payer MEDICARE, SELFPAY ==
--- OUTSIDE RECORDS SUMMARY | 2025-06-12 10:26 | XMS_ITS | Patient Health Record ---
Author Organization [facility] Address [address] [place] [address] Care Team Providers Care Bee Robber Name Role Phone Fabiano (RETIRED) Freddy MOORE Primary Care Provide r Unavailable Efraín Hughes Jr Unavailable [phone] Reason For Referral No Information Medications Medication SIG (Take, Route, Frequency, Duration) Notes Start Date End Date Status Suprep Bowel Prep 1 as directed Orally 1 ; Duration: 1 dose 12/10/2012 08/24/2024 Active Lisinopril 20MG 08/24/2024 08/24/2024 Ac tive Nifedical XL 50MG Ac tive hydroCHLOROthiazide 25MG Active Problems Problem Type SNOMED Code ICD Code Onset Dates Problem Status W/U Status Risk Notes Problem Long-term current use of drug therapy ([id number]) Encounter for long-term (current) use of other medications (V58.69) Active confirmed Problem Colon cancer screening ([id number]) Colon cancer screening (V76.51) Active confirmed Plan Of Treatment Future Test Test Name Order Date COLONOSCOPY 12/10/2012 Insurance Providers Payer Name Payer Address Payer Phone Subscriber Number Group Number Insured Name Patient Relationship to Insured Coverage Start Date Coverage End Date [facility] [employer] [address] [place] [address] [phone] [id number]ONS[address]Z Self - patient is the insured Medical (General) History Medical History History ICD Code HIGH BLOOD PRESSURE Denies OH,DM,CVA,Lung disease,renal dise ase Surgical History Surgery Date(Month/Year) LEG SURGERY 1989 fatty cyst removed from left wrist
[2025-06-12 11:09] LABS: Prostate Specific Antigen 0.31 ng/mL (<0.05-4.0)
== END 2025-06-12 09:15 | disposition home or self-care (01) ==
LOC: HO.10HDL 09:14
PROVIDERS: Visit Provider Urology
DX: Z12.5 Encounter for screening for malignant neoplasm of prostate (principal); C61 Malignant neoplasm of prostate
CPT/HCPCS: 36415; 84153

== ENCOUNTER 2025-06-30 14:31 | Outpatient (AMB) | payer MEDICARE, BC, SELFPAY ==
--- NOTE | 2025-06-30 14:41 | A.OFFVIS_ITS ---
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 He is a patient of Dr. Mario. He is seen for the following urologic conditions - prostate cancer Six-month follow-up Very slow PSA rise. Doubling time approximately 18-30 months May try cycling low-dose finasteride - alternate months Part of [place] [employer] exposure Prostate Cancer - 2014 [facility] 3+4 pT2 initial therapy RALP, EXBRT for rising PSA 03/10 PSA bouncing - with slow rise PSA 09/11 0.05, 09/14 0.08, 10/16 0.11, 05/16 0.13, 12/15 0.15, 06/16 0.2, 01/15 0.2, 06/17 0.3 Good urinary control, Associated erectile dysfunction Initial therapy RALP [facility] 2014 Secondary therapy EXBRT [facility] 03/10 - PSA 0.17 Continue with 6m PSA - consider PET-CT if PSA crosses 0.2 PFSH Medical History Encounter for colorectal cancer screening using Cologuard test (11/25/23) Obesity (BMI 35.0-39.9 without comorbidity) Prostate cancer Essential hypertension Surgical History History of colonoscopy (~03/11/13) Family History Mother No problems noted. Father No problems noted. 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 Cognitive needs: No Hearing needs: No Vision needs: No Review of Systems Const Denies chills and Denies fever(s) Card Reports no additional complaints and Denies syncope Resp Denies cough GI Denies abdominal pain and Denies heartburn Reports as per HPI and Denies change in libido Neuro Denies syncope Psych Denies change in libido Endo Denies change in libido Physical Exam Const General: cooperative, healthy appearing, comfortable and no acute distress Orientation/consciousness: patient oriented x3 HEENT Face and sinus: Yes normal facial exam Mouth: moist mucous membranes Neck Neck: Yes normal visual inspection, Yes full ROM and Yes trachea midline Chest Chest palpation & inspection: normal inspection of the chest Resp Effort & Inspection: normal respiratory effort, able to speak in complete sentences and no respiratory distress GI Inspection: Yes normal to inspection Back/Spine/Pelvis Cervical Spine: normal cervical lordosis Thoracic/Lumbar Spine: thoracic and lumbar spine normal to inspection Skin General skin exam: no rashes or lesions noted Neuro General: patient oriented x3, gait normal, tone normal and moves all extremities Extrem General: Yes normal to inspection and Yes capillary refill normal Assessment & Plan Assessment & Plan (1) Prostate cancer: Code(s): C61 - Malignant neoplasm of prostate Category: Medical (2) Rising PSA following treatment for malignant neoplasm of prostate: Code(s): R97.21 - Rising PSA following treatment for malignant neoplasm of prostate Category: Medical Plan Six-month follow-up PSA Orders: Orders Prostate Specific Antigen 6 Months C61 - Malignant neoplasm of prostate Medications: Refilled finasteride Take medication daily for alternate months - June on, July off etc 5 mg PO DAILY 90 tabs 1RF 90 days R97.21 - Rising PSA following treatment for malignant neoplasm of prostate Patient Instructions: This note is constructed using voice recognition software. While every effort has been made to ensure accuracy hearing instrument specialist errors may have been included. Imaging studies, laboratory and physical exam results were discussed and reviewed in detail. No major barriers to patient understanding were identified. An opportunity to ask questions regarding the treatment plan was provided. All questions were answered. The patient expressed understanding and agreement with the above treatment plan. The patient is aware they should contact our office by phone for worsening of their current condition or the appearance of new urologic symptoms. Compliance is encouraged with any medications and followup testing that is ordered. It is a privilege to participate in the urologic care of your patient. If you have any questions or concerns regarding treatment for the above conditions, or other urologic issues, please do not hesitate to contact me. The office telephone contact is [phone]. Sincerely, Dr Nathan Greenwood MD, [facility] - Urology Compassionate Specialist Care for the Genitourinary System Coding Level of Care Code Est Pt Level 3 (22379) Complex EM visit Add On G2211 Diagnoses Prostate cancer C61 Rising PSA following treatment for malignant neoplasm of prostate R97.21
== END 2025-06-30 15:19 | disposition home or self-care (01) ==
LOC: HO.HUSH 14:31
PROVIDERS: PCP Internal Medicine; Visit Provider Urology
DX: C61 Malignant neoplasm of prostate (principal); R97.21 Rising PSA following treatment for malignant neoplasm of prostate
CPT/HCPCS: 99213; G2211

== ENCOUNTER → 2025-06-30 14:31 | Outpatient (BNVA) | payer MEDICARE, BC, SELFPAY | PROVIDERS: PCP Internal Medicine; Visit Provider Urology | DX: R97.21 Rising PSA following treatment for malignant neoplasm of prostate (principal) | CPT/HCPCS: 99212 ==

== ENCOUNTER 2025-08-02 09:14 | Outpatient (AMB) | payer MEDICARE, SELFPAY ==
--- NOTE | 2025-08-02 09:29 | A.OFFPC_ITS ---
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 Mechanical Required: No Accompanied by: Self / Same As Patient Allergies No Known Allergies (No Known Allergies*) Allergy (Verified 08/02/25 09:29) Medication List - Last Reconciled 08/02/25 by Ramy Hall MD amlodipine 10 mg PO DAILY finasteride 5 mg PO DAILY 90 days hydralazine 10 mg PO BID lisinopril-hydrochlorothiazide 20-25 mg 1 tab PO DAILY Tobacco use date assessed: 02/01/25 Fall risk assessment: No Falls in past year Last assessed Fall Risk: 08/02/25 Dental Screening Dental Screen Date: 02/01/25 HPI HPI Comments History of Present Illness Details The patient is a 65 year old male presenting for evaluation of chronic knee pain. 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 The patient reports a persistent limp and notes that the pain is exacerbated by walking a lot and particularly by ascending and descending stairs. He denies any knee buckling. Previous x-rays in 2022 showed moderate changes. He is interested in gel shots, which he was told would require a referral to an environmental communications specialist. He has a history of hypertension for many years, since age 17, which is reportedly well-controlled on medication. He does not check his blood pressure at home. The patient has a history of prostate cancer, for which he underwent a prostatectomy. His PSA levels have been within the normal range since the surgery. He also takes finasteride for his prostate, which he reports is doing well. Medical History: - Hypertension, diagnosed at age 17 - Prostate cancer - History of traumatic knee injury Surgical History: - Prostatectomy for prostate cancer - Knee surgery with asher placement 40 yea rs ago Medications: - Lisinopril 20 mg-Hydrochlorothiazide 2 5 mg for hypertension - Amlodipine 10 mg for hypertension - Hydralazine 10 mg twice a day for hype rtension - Finasteride 5 mg for benign prostatic hyperplasia Family History: No family history was discussed. Diagnostic Results: - Knee X-ray (2022): Showed moderate deg enerative changes. - Prostate-specific antigen (PSA): Level s have been within normal limits since prostatectomy. 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 - Exercise and Activity: Reports walking a lot due to having dogs. [facility] Medical History (Updated 08/02/25 @ 09:58 by Ramy Hall MD) BPH NOS w/o ur obs/LUTS Right knee pain Encounter for colorectal cancer screening using Cologuard test (11/25/23) Obesity (BMI 35.0-39.9 without comorbidity) Prostate cancer Essential hypertension Surgical History History of colonoscopy (~03/11/13) Family History Mother No problems noted. Father No problems noted. 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 How often do you have a drink containing alcohol?: 2-4 times a month 2. How many drinks containing alcohol do you have on a typical day when you are drinking?: 1 or 2 3. How often do you have six or more drinks on one occasion?: Never Total Score: 2 PASTOR-7 AMB Questionnaire PASTOR-7 Date PASTOR - 7 assessed: 02/01/25 Source: Developed by Drs. Neal Horner, Fatoumata Madrigal, Manolo Crocker and colleagues, with an educational sharri from [employer]. Review of Systems Narrative - Musculoskeletal: Reports chronic knee pain with a limp, worsened by stairs and prolonged walking. - Genitourinary: Denies any issues with urination. - Gastrointestinal: Denies any issues with bowel movements. - Cardiovascular: Denies chest pain. - Respiratory: Denies shortness of breath. - Neurological: Denies headaches. - Eyes: Denies vision loss. All systems reviewed & are unremarkable except as reviewed in HPI and above Physical exam (Primary Care) Vital Signs: Last Vital Signs Temp 97.1 F 08/02/25 09:30 Pulse 61 08/02/25 09:30 Resp 16 08/02/25 09:30 BP 130/84 08/02/25 09:30 Pulse Ox 97 08/02/25 09:30 Oxygen Delivery Method Room Air 08/02/25 09:30 Care Plan Goal for BP management: Within Goal Next steps: Continue same regiment BMI result Body Mass Index 38.0 Tobacco/Smoking Status: Tobacco use Status Tobacco use date assessed 02/01/25 08/02/25 09:34 Patient Tobacco Use Status Never used Tobacco 08/02/25 09:34 e-Cigarette/Vaping Use Never Used 08/02/25 09:34 Thrive Assessment: Date of Thrive Assessment Date Thrive assessed 02/01/25 08/02/25 09:34 Narrative - Constitutional: Patient appears well. - Musculoskeletal: Gait is noted to be 'pretty good'. There is a little click noted in his knee. There is no pain on palpation of the knee. Strength is 5/5 bilaterally in upper and lower extremities demonstrated by hand squeeze, pull, and push maneuvers, and leg raises. Coding Level of Care Code Est Pt Level 4 (72134) Add On Problem Visit Only Diagnoses Essential hypertension I10 Right knee pain, unspecified chronicity M25.561 Chronicity: unspecified BPH NOS w/o ur obs/LUTS N40.0 Assessment & Plan Assessment & Plan (1) Essential hypertension: Comment: - The patient has a long-standing history of hypertension, which is currently well-controlled on a multi-drug regimen. - The patient was advised to start checking his blood pressure at home. Code(s): I10 - Essential (primary) hypertension Category: Medical (2) Right knee pain: Comment: - The patient presents with chronic knee pain secondary to an old injury, with prior X-rays showing moderate degenerative changes. - The plan is to obtain a new knee X-ray today to assess for any progression. - If the findings are severe enough, a referral will be placed to orthopedics for further evaluation and potential interventions, such as gel injections. - The patient was instructed to go for the X-ray immediately. Code(s): M25.561 - Pain in right knee Category: Medical Qualifiers: Chronicity: unspecified Qualified Code(s): M25.561 - Pain in right knee (3) BPH NOS w/o ur obs/LUTS: Comment: - The patient's PSA has remained normal post-prostatectomy. - He will continue his current medication, finasteride. - His prostate health was recently checked by his urologist and was deemed good. Code(s): N40.0 - Benign prostatic hyperplasia without lower urinary tract symptoms Category: Medical Plan: Health Maintenance: - Vaccinations: Patient declined the flu shot. - Screening Labs: Orders will be placed for blood work to be completed in 6 months, prior to the next annual physical. - Follow-up: Patient to return in 6 months for an annual physical exam. Patient was informed and verbally consented to the use of an ambient scribe for clinic note documentation during this visit. Plan I discussed with the patient his primary complaint of chronic knee pain. I explained that while his previous X-ray from 2022 showed only moderate changes, we would need to repeat the imaging to assess for any progression before considering a referral to an environmental communications specialist for interventions like gel shots, as this is an insurance requirement. I informed him that the order for the X-ray was placed and he could have it done immediately at the hospital across the street. I also advised him that I would call him with the results or place the orthopedic referral if warranted. We reviewed his well-controlled hypertension and his current medications. I encouraged him to start checking his blood pressures at home. I informed the patient that I would place an order for blood work to be done in six months, a week before his next annual physical exam, so we could discuss the results together at that visit. He was instructed to schedule his follow-up appointment in six months at the [facility]. Orders: Orders XR knee RT 4V Today M25.561 - Pain in right knee Complete Blood Count Auto Diff 6 Months Z00.00 - Encounter for general adult medical examination without abnormal findings Comprehensive Met. Panel 6 Months Z00.00 - Encounter for general adult medical examination without abnormal findings Hemoglobin A1c 6 Months Z00.00 - Encounter for general adult medical exami nation without abnormal findings HIV Ab/Ag 6 Months Z00.00 - Encounter for general adult medical examination without abnormal findings Lipid Panel 6 Months Z00.00 - Encounter for general adult medical examination without abnormal findings Microalbumin, Random (w Creat) 6 Months Z00.00 - Encounter for general adult medical examination without abnormal findings TSH reflex Free T4 6 Months Z00.00 - Encounter for general adult medical examination without abnormal findings Hepatitis A,B,C Profile 6 Months Z00.00 - Encounter for general adult medical examination without abnormal findings Syphilis Screen 6 Months Z00.00 - Encounter for general adult medical examination without abnormal findings Vitamin D 25-OH Total 6 Months Z00.00 - Encounter for general adult medical examination without abnormal findings Patient Instructions: - Go to the [facility] imaging department on the second floor today to get an X- ray of your knee. - We will call you with the X-ray results. If needed, we will send a referral to a bone specialist (orthopedics) and their office will contact you to schedule an appointment. - Start making it a habit to check your blood pressure at home. - In six months, go to the lab to have your blood work drawn. You should do this one week before your next appointment. You do not need to bring any paperwork. - Please go to the [facility] to schedule your next appointment for an annual physical in six months. - Continue taking your current medications as prescribed for blood pressure and prostate health.
[2025-08-02 09:30] VITALS: BP 130/84; PULSE 61; RESP 16; TEMP 36.2; O2SAT 97; BMI 38.0
== END 2025-08-02 09:45 | disposition home or self-care (01) ==
LOC: HO.HMCHD 09:15
PROVIDERS: PCP Internal Medicine; Visit Provider Student in an Organized Health Care Education/Training Program
DX: I10 Essential (primary) hypertension (principal); M25.561 Pain in right knee; N40.0 Benign prostatic hyperplasia without lower urinary tract symptoms

== ENCOUNTER 2025-08-02 09:14 | Outpatient (REF) | payer MEDICARE, SELFPAY ==
--- NOTE | ~2025-08-02 | XR_ITS ---
EXAMINATION: XR KNEE, RIGHT CLINICAL INFORMATION: M25.561 - Pain in right knee COMPARISON: Radiographs on January 30, 2023 TECHNIQUE: Four views of the right knee. FINDINGS: No acute fracture or dislocation. Included portion of the intramedullary hardware within the tibia appears intact and without abnormal perihardware lucency. Similar chronic deformities of the proximal diaphysis of the tibia and fibula. Interval progression of the severe degenerative changes in the patellofemoral compartment. Similar advanced degenerative changes of the medial and lateral femorotibial compartments. Small suprapatellar joint effusion. XR/XR knee RT 4V IMPRESSION: 1. No acute findings. 2. Advanced tricompartmental degenerative changes, progressed in the patellofemoral compartment from 2022. Electronically signed by: Abbi Bingham MD 08/02/2025 10:46 AM [facility]
== END 2025-08-02 09:15 | disposition home or self-care (01) ==
LOC: HO.XRAY 09:14
PROVIDERS: PCP Student in an Organized Health Care Education/Training Program; Visit Provider Student in an Organized Health Care Education/Training Program
DX: M25.561 Pain in right knee (principal); I10 Essential (primary) hypertension; N40.0 Benign prostatic hyperplasia without lower urinary tract symptoms; Z79.899 Other long term (current) drug therapy
CPT/HCPCS: 73564; 99212

== ENCOUNTER → 2025-08-02 10:02 | Outpatient (BNV) | payer MEDICARE, SELFPAY | PROVIDERS: PCP Student in an Organized Health Care Education/Training Program; Visit Provider Radiology Body Imaging | DX: M17.11 Unilateral primary osteoarthritis, right knee (principal) | CPT/HCPCS: 73564 ==